=== PATIENT | female | born 1975 | race Caucasian/White ===

== ENCOUNTER → 2017-06-25 | Outpatient (CLI) | payer OTHER ==
[2005-03-05 17:06] VITALS: TEMP 99
[~2017-06-25] MED LIST: ALLEGRA ALLERG180 MG PO; GILDESS FE 1.5/1 TAB PO
== END ==
LOC: MC.RAD 08:20
DX: Z12.31 Encounter for screening mammogram for malignant neoplasm of breast (principal)

== ENCOUNTER → 2017-07-01 | Outpatient (CLI) | payer OTHER ==
[2005-03-05 17:06] VITALS: TEMP 99
== END ==
LOC: MC.RAD 10:29
DX: N64.89 Other specified disorders of breast (principal); R92.2 Inconclusive mammogram

== ENCOUNTER → 2018-02-14 | Outpatient (CLI) | payer OTHER ==
[2005-03-05 17:06] VITALS: TEMP 99
== END ==
LOC: MC.RAD 09:00
DX: R92.2 Inconclusive mammogram (principal)

== ENCOUNTER → 2019-09-11 | Outpatient (CLI) | payer OTHER ==
[2005-03-05 17:06] VITALS: TEMP 99
== END ==
LOC: MC.RAD 11:21
DX: Z12.31 Encounter for screening mammogram for malignant neoplasm of breast (principal)

== ENCOUNTER → 2020-09-30 | Outpatient (CLI) | payer OTHER ==
[2005-03-05 17:06] VITALS: TEMP 99
== END ==
LOC: MC.RAD 09:00
DX: Z12.31 Encounter for screening mammogram for malignant neoplasm of breast (principal)

== ENCOUNTER → 2021-11-20 | Outpatient (CLI) | payer OTHER ==
[2005-03-05 17:06] VITALS: TEMP 99
== END ==
LOC: MC.RAD 09:00
DX: Z12.31 Encounter for screening mammogram for malignant neoplasm of breast (principal)